=== PATIENT | male | born 1995 | race Caucasian/White ===

== ENCOUNTER 2018-02-27 22:02 | Inpatient (IN) ==
--- NOTE | 2018-02-27 22:50 | Emergency Department Note ---
Disposition Clinical Impression: Suicidal ideations Disposition: Admitted As Inpatient Condition: Fair Referrals: NONE,PCP [Primary Care Provider] - Forms: ED Satisfaction Letter Psych HPI - General Chief Complaint: ED Psychiatric Symptoms Stated Complaint: anxiety Source: patient, EMS, police Nursing Notes Reviewed: Yes Vital Signs Reviewed: Yes - History of Present Illness HPI Narrative: 22-year-old male presents to the emergency department with concern for having suicidal ideations. Mother states that patient posted a video social media where he got into a full bathtub with a knife up with a knife up to his neck and then cut the film. States that he is having auditory hallucinations. The voices are not telling him specifically to hurt himself or hurt anybody else, but he does have voices. No visual hallucinations. [place] talking to [place]. Patient reports history of marijuana use as well as amphetamines use. States he has not had any today. States that the drugs helps his feelings. Reports having depression and anxiety. - Related Data Previous Rx's Medication Instructions Recorded Albuterol Sulfate [Albuterol 0 puff IH Q6HR #1 hfa.aer.ad 06/03/15 Inhaler] Azithromycin [Zithromax] 250 mg PO DAILY #6 tablet 06/03/15 predniSONE [Prednisone] 0 mg PO QDPC #21 tablet 06/03/15 Erythromycin OPTH Oint 1 appl LEFT EYE TID #1 tube 03/20/16 Allergies Allergy/AdvReac Type Severity Reaction Status Date / Time No Known Allergies Allergy Verified 06/03/15 10:31 All systems ED: reviewed and negative except as stated. Review of Systems: As Per HPI Constitutional: Denies: fever Cardiovascular: Denies: chest pain Respiratory: Denies: dyspnea Gastrointestinal: Denies: abdominal pain Neurological: Denies: headache Psychiatric: Reports: suicidal thoughts, auditory hallucinations Past Medical History - Past Medical History Medical history: Reports: no medical history Surgical history: Reports: no surgical history Psychiatric history: Reports: no psych history - Social History Smoking Status: Current every day smoker Smokeless Tobacco Status: No Alcohol use: Reports: occasionally Drug use: Reports: marijuana Physical Exam - General General appearance: alert, in no apparent distress - Head Head exam: atraumatic, normocephalic - Eye Eye exam: Present: EOMI - ENT ENT exam: mucous membranes moist - Neck Neck exam: Present: trachea midline - Chest Chest inspection: Present: normal inspection, symmetric chest wall rise - Respiratory Respiratory exam: Present: normal lung sounds bilaterally. Absent: respiratory distress - Cardiovascular Cardiovascular exam: Present: regular rate, normal rhythm, normal heart sounds - Abdominal Exam Abdominal exam: Present: soft, Non-Tender. Absent: distention, guarding, rebound - Extremities Exam Extremities exam: Present: normal capillary refill - Back Exam Back exam: Absent: CVA tenderness (R), CVA tenderness (L) - Neurological Exam Neurological exam: Present: alert, oriented X3, CN II-XII intact - Psychiatric Psychiatric exam: Present: flat affect - Skin Skin exam: Present: warm, dry, intact, normal color Course Vital Signs Temperature 97.9 F 02/27/18 22:05 Pulse Rate 100 02/27/18 22:05 Respiratory Rate 16 02/27/18 22:05 Blood Pressure 118/71 02/27/18 22:05 O2 Sat by Pulse Oximetry 100 02/27/18 22:05 Temperature 97.9 F 02/27/18 22:05 Pulse Rate 92 02/28/18 02:49 Respiratory Rate 16 02/28/18 02:49 Blood Pressure 122/72 02/28/18 02:49 O2 Sat by Pulse Oximetry 100 02/28/18 02:49 Oxygen Delivery Oxygen Delivery Room Air Psych - MDM Narrative Medical decision making narrative: 22-year-old male presents emergency department with concern for suicidal ideations. [place] slip was written. We obtained an EKG and this does not reveal any evidence of ischemia or drug overdose. Patient's ethanol level was negative. Patient's Tylenol level was negative. No elevated salicylate. Marijuana was found the urine. Patient was evaluated by one a. They recommended observation. Patient minutes before. Patient had a sitter. Patient under suicide precautions. - Lab Data Result diagrams: 02/27/18 22:51 02/27/18 22:51 Lab Results 02/27/18 02/27/18 02/27/18 Range/Units 22:51 22:51 23:03 WBC 13.2 H (4.3-11.1) K/mcL RBC 4.99 (4.19-5.50) M/mcL Hgb 15.4 (12.9-16.9) g/dL Hct 44.5 (37.5-50.1) % MCV 89.2 (83.0-100.0) fL MCH 30.9 (28.0-33.3) pg MCHC 34.6 (31.6-35.5) g/dL RDW 13.0 (11.5-14.5) % Plt Count 280 (140-400) K/mcL MPV 9.6 (9.4-12.4) fL Immature Gran % 0.2 (0-4) % Seg Neutrophils % 75.8 % Lymphocytes % 16.0 % Monocytes % 6.7 % Eosinophils % 0.9 % Basophils % 0.4 % Neutrophils # 10.0 H (1.6-8.9) K/mcL Lymphocytes # 2.1 (0.6-4.6) K/mcL Monocytes # 0.9 (0.0-1.3) K/mcL Eosinophils # 0.1 (0.0-0.6) K/mcL Basophils # 0.1 (0.0-0.2) K/mcL Sodium 138 (136-145) mEq/L Potassium 3.9 (3.5-5.1) mEq/L Chloride 105 (98-107) mEq/L Carbon Dioxide 26 (23-29) mEq/L BUN 14 (6-20) mg/dL Creatinine 0.85 (0.70-1.30) mg/dL Est GFR ( Amer) > 60 (> 60) Est GFR (Non-Af Amer) > 60 (> 60) BUN/Creatinine Ratio 16 (6-26) Glucose 93 (70-105) mg/dL Calculated Osmolality 286 (280-300) Calcium 10.2 (8.6-10.3) mg/dL Total Bilirubin 0.5 (0.3-1.0) mg/dL AST 20 (13-39) Units/L ALT 12 (7-52) Units/L Alkaline Phosphatase 96 (34-104) Units/L Serum Total Protein 7.8 (6.4-8.9) g/dL Albumin 5.0 (3.5-5.7) g/dL Globulin 2.8 (2.4-3.5) g/dL Albumin/Globulin Ratio 1.8 (1.1-2.2) Urine Color Yellow (Yellow) Urine Clarity Clear (Clear) Urine pH 7.5 (5.0-8.0) pH Units Ur Specific [place] 1.015 (1.010-1.025) Urine Protein Negative (Neg-Trace) mg/dL Urine Glucose (UA) Normal (Normal) mg/dL Urine Ketones Negative (Negative) mg/dL Urine Blood Negative (Negative) Urine Nitrite Negative (Negative) Urine Bilirubin Negative (Negative) Urine Urobilinogen Normal (Normal) mg/dL Ur Leukocyte Esterase Negative (Negative) Salicylates < 2.5 L (15.0-30.0) mg/dL Urine Opiates Screen (Klvnyd=973) ng/mL Acetaminophen < 10 L (10-20) mcg/mL Ur Barbiturates Screen (Qckzwq=665) ng/mL Ur Phencyclidine Scrn (Cutoff=25) ng/mL Ur Amphetamines Screen (Drxutq=3977) ng/mL U Benzodiazepines Scrn (Nnmcsx=593) ng/mL Urine Cocaine Screen (Cutoff= 300) ng/mL U Marijuana (THC) Screen (Cutoff = 50) ng/mL Ethyl Alcohol < 10 (Less than 10) mg/dL 02/27/18 Range/Units 23:03 WBC (4.3-11.1) K/mcL RBC (4.19-5.50) M/mcL Hgb (12.9-16.9) g/dL Hct (37.5-50.1) % MCV (83.0-100.0) fL MCH (28.0-33.3) pg MCHC (31.6-35.5) g/dL RDW (11.5-14.5) % Plt Count (140-400) K/mcL MPV (9.4-12.4) fL Immature Gran % (0-4) % Seg Neutrophils % % Lymphocytes % % Monocytes % % Eosinophils % % Basophils % % Neutrophils # (1.6-8.9) K/mcL Lymphocytes # (0.6-4.6) K/mcL Monocytes # (0.0-1.3) K/mcL Eosinophils # (0.0-0.6) K/mcL Basophils # (0.0-0.2) K/mcL Sodium (136-145) mEq/L Potassium (3.5-5.1) mEq/L Chloride (98-107) mEq/L Carbon Dioxide (23-29) mEq/L BUN (6-20) mg/dL Creatinine (0.70-1.30) mg/dL Est GFR ( Amer) (> 60) Est GFR (Non-Af Amer) (> 60) BUN/Creatinine Ratio (6-26) Glucose (70-105) mg/dL Calculated Osmolality (280-300) Calcium (8.6-10.3) mg/dL Total Bilirubin (0.3-1.0) mg/dL AST (13-39) Units/L ALT (7-52) Units/L Alkaline Phosphatase (34-104) Units/L Serum Total Protein (6.4-8.9) g/dL Albumin (3.5-5.7) g/dL Globulin (2.4-3.5) g/dL Albumin/Globulin Ratio (1.1-2.2) Urine Color (Yellow) Urine Clarity (Clear) Urine pH (5.0-8.0) pH Units Ur Specific Stamps (1.010-1.025) Urine Protein (Neg-Trace) mg/dL Urine Glucose (UA) (Normal) mg/dL Urine Ketones (Negative) mg/dL Urine Blood (Negative) Urine Nitrite (Negative) Urine Bilirubin (Negative) Urine Urobilinogen (Normal) mg/dL Ur Leukocyte Esterase (Negative) Salicylates (15.0-30.0) mg/dL Urine Opiates Screen Negative (Ybkanm=581) ng/mL Acetaminophen (10-20) mcg/mL Ur Barbiturates Screen Negative (Fvsikv=911) ng/mL Ur Phencyclidine Scrn Negative (Cutoff=25) ng/mL Ur Amphetamines Screen Negative (Scvtel=0855) ng/mL U Benzodiazepines Scrn Negative (Nrdnzj=288) ng/mL Urine Cocaine Screen Negative (Cutoff= 300) ng/mL U Marijuana (THC) Screen Positive H (Cutoff = 50) ng/mL Ethyl Alcohol (Less than 10) mg/dL - EKG Data EKG attestation: Yes I reviewed and interpreted this EKG. EKG results narrative: 23:17 Ventricular rate 6 bpm, normal NM interval, QR amish 90 ms, QT 3 and 45 ms , QTC 388 ms, normal axis. Sinus rhythm with a ventricular rate of 86 bpm. There is no evidence of tall R wave in aVR, QRS widening, QT prolongation, ischemia on this electrocardiogram. This is done in comparison with the previous study performed on 06/03/2015. Psychiatric Medical Clearance - Medical Clearance Checklist Medical History: No Social History Section defined Current Vitals: Last Vital Signs Temp 97.9 F 02/27/18 22:05 Pulse 92 02/28/18 02:49 Resp 16 02/28/18 02:49 BP 122/72 02/28/18 02:49 Pulse Ox 100 02/28/18 02:49 Psychiatric Lab Panel: Drug Levels and Toxicity 02/27/18 02/27/18 22:51 23:03 Urine Opiates Screen Negative Acetaminophen < 10 L Ur Barbiturates Screen Negative Ur Phencyclidine Scrn Negative Ur Amphetamines Screen Negative U Benzodiazepines Scrn Negative Urine Cocaine Screen Negative U Marijuana (THC) Screen Positive H Ethyl Alcohol < 10 Abnormal Labs: Abnormal lab results WBC 13.2 K/mcL (4.3-11.1) H 02/27/18 22:51 Neutrophils # 10.0 K/mcL (1.6-8.9) H 02/27/18 22:51 Salicylates < 2.5 mg/dL (15.0-30.0) L 02/27/18 22:51 Acetaminophen < 10 mcg/mL (10-20) L 02/27/18 22:51 U Marijuana (THC) Screen Positive ng/mL (Cutoff = 50) H 02/27/18 23:03 Statement of Medical Clearance: I have evaluated the patient, reviewed diagnostic information, and certify that the patient's medical condition is sufficiently stable that transfer to the psychiatric unit does not pose a significant risk of deterioration.
[2018-02-27 23:08] LABS: Basophils # 0.1 K/mcL (0.0-0.2); Basophils % 0.4 %; Eosinophils # 0.1 K/mcL (0.0-0.6); Eosinophils % 0.9 %; Hematocrit 44.5 % (37.5-50.1); Hemoglobin 15.4 g/dL (12.9-16.9); Immature Granulocytes % 0.2 % (0-4); Lymphocytes # 2.1 K/mcL (0.6-4.6); Mean Corpuscular HGB Conc 34.6 g/dL (31.6-35.5); Mean Corpuscular Hemoglobin 30.9 pg (28.0-33.3); Mean Corpuscular Volume 89.2 fL (83.0-100.0); Mean Platelet Volume 9.6 fL (9.4-12.4); Monocytes # 0.9 K/mcL (0.0-1.3); Monocytes % 6.7 %; Platelet Count 280 K/mcL (140-400); Red Blood Count 4.99 M/mcL (4.19-5.50); Segmented Neutrophils % 75.8 %
[2018-02-27 23:12] LABS: Bilirubin,Urine Negative (Negative); Blood,Urine Negative (Negative); Clarity,Urine Clear (Clear); Color,Urine Yellow (Yellow); Glucose,Urine (UA) Normal (Normal); Ketones,Urine Negative (Negative); Leukocyte Esterase,Urine Negative (Negative); Nitrite,Urine Negative (Negative); PH,Urine 7.5 pH Units (5.0-8.0); Protein,Urine Negative (Neg-Trace); Specific Gravity,Urine 1.015 (1.010-1.025); Urobilinogen,Urine Normal (Normal)
[2018-02-27 23:20] LABS: Amphetamine Screen,Urine Negative ng/mL (Cutoff=1000); Barbiturate Screen,Urine Negative ng/mL (Cutoff=200); Benzodiazepines Screen,Urine Negative ng/mL (Cutoff=200); Cannabinoid Screen,Urine Positive ng/mL (Cutoff = 50); Cocaine Screen,Urine Negative ng/mL (Cutoff= 300); Opiate Screen,Urine Negative ng/mL (Cutoff=300); Phencyclidine Screen,Urine Negative ng/mL (Cutoff=25)
[2018-02-27 23:32] LABS: Acetaminophen < 10 mcg/mL (10-20); Alanine Aminotransferase 12 Units/L (7-52); Albumin/Globulin Ratio 1.8 (1.1-2.2); Alkaline Phosphatase 96 Units/L (34-104); Aspartate Amino Transferase 20 Units/L (13-39); BUN/Creatinine Ratio 16 (6-26); Bilirubin,Total 0.5 mg/dL (0.3-1.0); Blood Urea Nitrogen 14 mg/dL (6-20); Calcium 10.2 mg/dL (8.6-10.3); Carbon Dioxide 26 mEq/L (23-29); Chloride 105 mEq/L (98-107); Ethanol < 10 mg/dL (Less than 10); Globulin 2.8 g/dL (2.4-3.5); Glucose 93 mg/dL (70-105); Osmolality,Calculated 286 (280-300); Potassium 3.9 mEq/L (3.5-5.1); Salicylate < 2.5 mg/dL (15.0-30.0); Sodium 138 mEq/L (136-145); Total Protein 7.8 g/dL (6.4-8.9); eGFR For African Americans > 60 (> 60); eGFR For Non-African Americans > 60 (> 60)
--- NOTE | 2018-02-28 03:04 | Emergency Department Note ---
Disposition Clinical Impression: Suicidal ideations Disposition: Admitted As Inpatient Condition: Good General Adult HPI - General Chief complaint: ED Psychiatric Symptoms Stated complaint: anxiety Time Seen by Provider: 02/27/18 23:31 Source: patient, EMS, police Nursing Notes Reviewed: Yes Vital Signs Reviewed: Yes - History of Present Illness Pain Scale: 0 - Related Data Previous Rx's Medication Instructions Recorded Albuterol Sulfate [Albuterol 0 puff IH Q6HR #1 hfa.aer.ad 06/03/15 Inhaler] Azithromycin [Zithromax] 250 mg PO DAILY #6 tablet 06/03/15 predniSONE [Prednisone] 0 mg PO QDPC #21 tablet 06/03/15 Erythromycin OPTH Oint 1 appl LEFT EYE TID #1 tube 03/20/16 Allergies Allergy/AdvReac Type Severity Reaction Status Date / Time No Known Allergies Allergy Verified 06/03/15 10:31 Past Medical History - Past Medical History Medical history: Reports: no medical history Surgical history: Reports: no surgical history Psychiatric history: Reports: no psych history - Social History Smoking Status: Current every day smoker Smokeless Tobacco Status: No Alcohol use: Reports: occasionally Drug use: Reports: marijuana Physical Exam - General General appearance: alert, in no apparent distress Course Vital Signs Temperature 97.9 F 02/27/18 22:05 Pulse Rate 100 02/27/18 22:05 Respiratory Rate 16 02/27/18 22:05 Blood Pressure 118/71 02/27/18 22:05 O2 Sat by Pulse Oximetry 100 02/27/18 22:05 Temperature 97.9 F 02/27/18 22:05 Pulse Rate 92 02/28/18 02:49 Respiratory Rate 16 02/28/18 02:49 Blood Pressure 122/72 02/28/18 02:49 O2 Sat by Pulse Oximetry 100 02/28/18 02:49 Oxygen Delivery Oxygen Delivery Room Air Medical Decision Making - Lab Data Result diagrams: 02/27/18 22:51 02/27/18 22:51 Lab Results 02/27/18 02/27/18 02/27/18 Range/Units 22:51 22:51 23:03 WBC 13.2 H (4.3-11.1) K/mcL RBC 4.99 (4.19-5.50) M/mcL Hgb 15.4 (12.9-16.9) g/dL Hct 44.5 (37.5-50.1) % MCV 89.2 (83.0-100.0) fL MCH 30.9 (28.0-33.3) pg MCHC 34.6 (31.6-35.5) g/dL RDW 13.0 (11.5-14.5) % Plt Count 280 (140-400) K/mcL MPV 9.6 (9.4-12.4) fL Immature Gran % 0.2 (0-4) % Seg Neutrophils % 75.8 % Lymphocytes % 16.0 % Monocytes % 6.7 % Eosinophils % 0.9 % Basophils % 0.4 % Neutrophils # 10.0 H (1.6-8.9) K/mcL Lymphocytes # 2.1 (0.6-4.6) K/mcL Monocytes # 0.9 (0.0-1.3) K/mcL Eosinophils # 0.1 (0.0-0.6) K/mcL Basophils # 0.1 (0.0-0.2) K/mcL Sodium 138 (136-145) mEq/L Potassium 3.9 (3.5-5.1) mEq/L Chloride 105 (98-107) mEq/L Carbon Dioxide 26 (23-29) mEq/L BUN 14 (6-20) mg/dL Creatinine 0.85 (0.70-1.30) mg/dL Est GFR ( Amer) > 60 (> 60) Est GFR (Non-Af Amer) > 60 (> 60) BUN/Creatinine Ratio 16 (6-26) Glucose 93 (70-105) mg/dL Calculated Osmolality 286 (280-300) Calcium 10.2 (8.6-10.3) mg/dL Total Bilirubin 0.5 (0.3-1.0) mg/dL AST 20 (13-39) Units/L ALT 12 (7-52) Units/L Alkaline Phosphatase 96 (34-104) Units/L Serum Total Protein 7.8 (6.4-8.9) g/dL Albumin 5.0 (3.5-5.7) g/dL Globulin 2.8 (2.4-3.5) g/dL Albumin/Globulin Ratio 1.8 (1.1-2.2) Urine Color Yellow (Yellow) Urine Clarity Clear (Clear) Urine pH 7.5 (5.0-8.0) pH Units Ur Specific [place] 1.015 (1.010-1.025) Urine Protein Negative (Neg-Trace) mg/dL Urine Glucose (UA) Normal (Normal) mg/dL Urine Ketones Negative (Negative) mg/dL Urine Blood Negative (Negative) Urine Nitrite Negative (Negative) Urine Bilirubin Negative (Negative) Urine Urobilinogen Normal (Normal) mg/dL Ur Leukocyte Esterase Negative (Negative) Salicylates < 2.5 L (15.0-30.0) mg/dL Urine Opiates Screen (Ubnncm=681) ng/mL Acetaminophen < 10 L (10-20) mcg/mL Ur Barbiturates Screen (Nvljfs=223) ng/mL Ur Phencyclidine Scrn (Cutoff=25) ng/mL Ur Amphetamines Screen (Gtcfhd=0577) ng/mL U Benzodiazepines Scrn (Jxmska=961) ng/mL Urine Cocaine Screen (Cutoff= 300) ng/mL U Marijuana (THC) Screen (Cutoff = 50) ng/mL Ethyl Alcohol < 10 (Less than 10) mg/dL 02/27/18 Range/Units 23:03 WBC (4.3-11.1) K/mcL RBC (4.19-5.50) M/mcL Hgb (12.9-16.9) g/dL Hct (37.5-50.1) % MCV (83.0-100.0) fL MCH (28.0-33.3) pg MCHC (31.6-35.5) g/dL RDW (11.5-14.5) % Plt Count (140-400) K/mcL MPV (9.4-12.4) fL Immature Gran % (0-4) % Seg Neutrophils % % Lymphocytes % % Monocytes % % Eosinophils % % Basophils % % Neutrophils # (1.6-8.9) K/mcL Lymphocytes # (0.6-4.6) K/mcL Monocytes # (0.0-1.3) K/mcL Eosinophils # (0.0-0.6) K/mcL Basophils # (0.0-0.2) K/mcL Sodium (136-145) mEq/L Potassium (3.5-5.1) mEq/L Chloride (98-107) mEq/L Carbon Dioxide (23-29) mEq/L BUN (6-20) mg/dL Creatinine (0.70-1.30) mg/dL Est GFR ( Amer) (> 60) Est GFR (Non-Af Amer) (> 60) BUN/Creatinine Ratio (6-26) Glucose (70-105) mg/dL Calculated Osmolality (280-300) Calcium (8.6-10.3) mg/dL Total Bilirubin (0.3-1.0) mg/dL AST (13-39) Units/L ALT (7-52) Units/L Alkaline Phosphatase (34-104) Units/L Serum Total Protein (6.4-8.9) g/dL Albumin (3.5-5.7) g/dL Globulin (2.4-3.5) g/dL Albumin/Globulin Ratio (1.1-2.2) Urine Color (Yellow) Urine Clarity (Clear) Urine pH (5.0-8.0) pH Units Ur Specific [place] (1.010-1.025) Urine Protein (Neg-Trace) mg/dL Urine Glucose (UA) (Normal) mg/dL Urine Ketones (Negative) mg/dL Urine Blood (Negative) Urine Nitrite (Negative) Urine Bilirubin (Negative) Urine Urobilinogen (Normal) mg/dL Ur Leukocyte Esterase (Negative) Salicylates (15.0-30.0) mg/dL Urine Opiates Screen Negative (Kzvskf=758) ng/mL Acetaminophen (10-20) mcg/mL Ur Barbiturates Screen Negative (Kftwub=629) ng/mL Ur Phencyclidine Scrn Negative (Cutoff=25) ng/mL Ur Amphetamines Screen Negative (Wjklcu=1975) ng/mL U Benzodiazepines Scrn Negative (Achgty=973) ng/mL Urine Cocaine Screen Negative (Cutoff= 300) ng/mL U Marijuana (THC) Screen Positive H (Cutoff = 50) ng/mL Ethyl Alcohol (Less than 10) mg/dL Attestation Statement - Attestation Attestation: I, Ron Luo MD, personally evaluated this patient and discussed their management with the resident physician. I reviewed the resident's note and agree with the documented findings, medical decision making, and plan of care. 22-year-old male presents to the emergency department with a complaint of suicidal ideation. He also admits to auditory hallucinations. No actual suicide attempt. He admits to prior history of suicidal thoughts. He is not on any psychiatric medications. On examination patient is a well-developed thin young male in no acute distress. He is alert and oriented 3. There is no cyanosis or diaphoresis. Breath sounds are clear and equal bilaterally. Heart regular rate and rhythm. Abdomen soft and nontender with normal bowel sounds. No gross focal neurological deficits. Labs reviewed. [address] psychiatry department was consulted and evaluated the patient in the emergency department and patient is being admitted to the 1A psychiatric unit.
[2018-02-28] MEDS ORDERED: traZODone 50 MG TABLET PO PRN (04:45)
[2018-02-28] MEDS ORDERED: Mag Hydrox/Al Hydrox/Simeth 30 ML UDC PO PRN (04:45)
[2018-02-28] MEDS ORDERED: MOM Conc 10 ML UD.LIQ PO PRN (04:45)
[2018-02-28] MEDS ORDERED: Acetaminophen 325 MG TABLET PO PRN (04:45)
[2018-02-28] MEDS ORDERED: Haloperidol Lactate 5 MG/ML VIAL IM PRN (04:45)
--- NOTE | 2018-02-28 07:26 | Electrocardiograph Report ---
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
--- NOTE | 2018-02-28 12:30 | Psychiatry History & Physical ---
Date of Encounter: 02/28/18 Time of Encounter: 12:00 History of Present Illness Patient Stated Chief Complaint: depressed Medicare Admission Attestation: For traditional Medicare patients the provided hospital inpatient services are reasonable and necessary and in the case of services not specified as inpatient -only under 42 CFR 419.22 (n), that they are appropriately provided as inpatient services in accordance 42 CFR 412.3. For Critical Access Hospital the patient may reasonably be expected to be discharged or transferred to a hospital within 96 hours after admission to the Critical Access Hospital. Admitted From: Emergency Dept Plans for Post Hospital Care: Home History of Present Illness: Mr. Ghotra is a 20 year old male 22-year-old male presents to the emergency department with a complaint of suicidal ideation. He also admits to auditory hallucinations. No actual suicide attempt. He admits to prior history of suicidal thoughts. He is not on any psychiatric medications. On examination patient is a well-developed thin young male in no acute distress. He is alert and oriented 3. There is no cyanosis or diaphoresis. Breath sounds are clear and equal bilaterally. Heart regular rate and rhythm. Abdomen soft and nontender with normal bowel sounds. No gross focal neurological deficits. Labs reviewed. [address] psychiatry department was consulted and evaluated the patient in the emergency department and patient is being admitted to the 1A psychiatric unit. Pt is a 22 yo ,, male, never , with 1 child and a girlfriend who presents for depression and anxiety. Pt noted recent exacerbation of depression. Pt noted I came in because I needed some help I feel better now that I am here and safe. I feel safe and comfortable on the unit. Pt denied any side effects to current medications. Pt was in agreement with current treatment plan. Pt noted that he is doing alright today. Pt noted he slept 6 hours broken night. Pt noted his appetite is its down. Pt rated his depression a 8, on a scale of zero to ten with ten being the worst and zero being none. Pt rate his anxiety a 8, on the same scale. Pt denied any auditory or visual hallucinations. Pt denied any current thoughts to harm himself or anyone else. Pt noted that he lives temporarily in [place], [place] with his girlfriend.. PT note his father completed suicide 7-8 years ago, pt noted his mother lives in [place], [place]. Pt noted that his highest level of education is 12th grade did not graduate. Pt noted he is currently unemployed. Pt noted one previous inpt psychiatric hospitalizations in 2013 with a "bad trip on LSD. Pt noted a few "attempts.....like walking out in traffic." Pt denied any other family hx of suicides besides his fahter. PT noted a chrronic hx of depression throughouthis entire family. 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 No TD noted, AIMS=0 MSE: Alert and Oriented x3 Appearance: appropriately groomed dressed in civilian attire Behavior: Polite, friendly, courteous Speech: fluent, normal tone, normal rate Mood: depressed Affect: mood congruent Thought content: no HI noted, no SI noted, no delusions noted Psychosis: none noted, currently does not appear to be responding to internal stimuli. Thought Process: linear logical, goal directed Judgment: fair. Insight: fair. Assessment/Plan 1.Interval hx 2.Continue current medications 3.Review current labs 4.Pt had an opportunity to ask questions and discuss current treatment plan. 5.Supportive therapy was provided 6.Pt encouraged to consider group or individual therapy 7.Pt was in agreement with treatment plan. 8.Pt was educated on the risks benefits and side effects of current medications. 9. start sertaline 50 mg PO QAM for mood 10. start Aripiprazole 2 mg PO QAM for mood. Past Med Surg Social Fam HX - Past Medical History Medical history: no medical history - Past Psychiatric History Psychiatric history: Reports: depression, prior suicide attempt, previous psychiatric hospitalization Family psychiatric history: Yes Family History of Suicide: Completed - Past Surgical History Surgical History: no surgical history - Social History Smoking Status: Current every day smoker Smokeless Tobacco Status: No Alcohol use: rarely Drug use: marijuana Medications & Allergies No Known Home Drugs 02/28/18 [History] 3 Allergy/AdvReac Type Severity Reaction Status Date / Time No Known Allergies Allergy Verified 02/28/18 11:10 Review of Systems Constitutional: Denies: fever, chills, weakness, weight change Eyes: Denies: eye pain, vision change Ears, Nose, Throat: Denies: ear pain, throat pain, dental pain, hearing loss, congestion Cardiovascular: Denies: chest pain, palpitations, dyspnea on exertion Respiratory: Denies: cough, dyspnea, wheezes Gastrointestinal: Denies: abdominal pain, nausea, vomiting, diarrhea, constipation Genitourinary male: Denies: urgency, dysuria, frequency, genital lesions Musculoskeletal: Denies: joint swelling, joint pain Integumentary: Denies: rash, lesions, pruritus Neurological: Denies: headache, weakness, numbness, memory loss Psychiatric: Reports: depression, abnormal sleep pattern, suicidal ideation Endocrine: Denies: fatigue, heat or cold intolerance Hematologic/Lymphatic: Denies: easy bruising, lymphadenopathy Allergic/Immunologic: Denies: urticaria, itchy eyes Exam - HEENT Head exam IM: Present: atraumatic Eye exam IM: Present: EOMI, normal appearance, PERRL ENT exam IM: Present: normal exam - Neurological Neurological exam: Present: CN II-XII intact - Respiratory Respiratory exam IM: Present: CTAB - GI/Abdominal GI/Abdominal exam IM: Present: normal bowel sounds, soft. Absent: tenderness - Extremities Extremities exam IM: Present: full ROM - Skin Skin exam IM: Present: dry, warm - Constitutional Vitals: Temp Pulse Resp BP Pulse Ox 98.0 F 94 16 109/86 100 02/28/18 09:00 02/28/18 09:00 02/28/18 09:00 02/28/18 09:00 02/28/18 03:46 General appearance: age & developmentally appropriate, well-groomed, well- nourished - Musculoskeletal Gait: normal Station: relaxed Strength & Tone: normal for patient - Psychiatric Patient Orientation: Yes Person, Yes Time, Yes Place Level of alertness: Alert Behavior: calm, cooperative Psychomotor activity: Normal Eye Contact: Minimal Contact Mood Description: Depressed Affect description: congruent with mood, dysphoric Speech Volume: Normal Speech pattern: normal rate, normal rhythm, normal tone, fluent, spontaneous, slowed Language & Vocabulary: consistent with education Thought Process: Intact, Logical, Linear, Goal Oriented Thought Content: Yes Suicidal ideation Perceptual Disturbances: No Auditory hallucinations, No Visual hallucinations Attention Span Ability: Capable of Focused Attention Memory Description: Grossly Intact Patient Reliability: Reliable Historian Fund of knowledge: Yes abstraction ability, Yes average, Yes aware of current events Intelligence Estimate: Average Judgment: Limited Insight: Partial Results - Labs Labs: Laboratory Last Values WBC 13.2 K/mcL (4.3-11.1) H 02/27/18 22:51 RBC 4.99 M/mcL (4.19-5.50) 02/27/18 22:51 Hgb 15.4 g/dL (12.9-16.9) 02/27/18 22:51 Hct 44.5 % (37.5-50.1) 02/27/18 22:51 MCV 89.2 fL (83.0-100.0) 02/27/18 22:51 MCH 30.9 pg (28.0-33.3) 02/27/18 22:51 MCHC 34.6 g/dL (31.6-35.5) 02/27/18 22:51 RDW 13.0 % (11.5-14.5) 02/27/18 22:51 Plt Count 280 K/mcL (140-400) 02/27/18 22:51 MPV 9.6 fL (9.4-12.4) 02/27/18 22:51 Immature Gran % 0.2 % (0-4) 02/27/18 22:51 Seg Neutrophils % 75.8 % 02/27/18 22:51 Lymphocytes % 16.0 % 02/27/18 22:51 Monocytes % 6.7 % 02/27/18 22:51 Eosinophils % 0.9 % 02/27/18 22:51 Basophils % 0.4 % 02/27/18 22:51 Neutrophils # 10.0 K/mcL (1.6-8.9) H 02/27/18 22:51 Lymphocytes # 2.1 K/mcL (0.6-4.6) 02/27/18 22:51 Monocytes # 0.9 K/mcL (0.0-1.3) 02/27/18 22:51 Eosinophils # 0.1 K/mcL (0.0-0.6) 02/27/18 22:51 Basophils # 0.1 K/mcL (0.0-0.2) 02/27/18 22:51 Sodium 138 mEq/L (136-145) 02/27/18 22:51 Potassium 3.9 mEq/L (3.5-5.1) 02/27/18 22:51 Chloride 105 mEq/L (98-107) 02/27/18 22:51 Carbon Dioxide 26 mEq/L (23-29) 02/27/18 22:51 BUN 14 mg/dL (6-20) 02/27/18 22:51 Creatinine 0.85 mg/dL (0.70-1.30) 02/27/18 22:51 Est GFR ( Amer) > 60 (> 60) 02/27/18 22:51 Est GFR (Non-Af Amer) > 60 (> 60) 02/27/18 22:51 BUN/Creatinine Ratio 16 (6-26) 02/27/18 22:51 Glucose 93 mg/dL (70-105) 02/27/18 22:51 Calculated Osmolality 286 (280-300) 02/27/18 22:51 Calcium 10.2 mg/dL (8.6-10.3) 02/27/18 22:51 Total Bilirubin 0.5 mg/dL (0.3-1.0) 02/27/18 22:51 AST 20 Units/L (13-39) 02/27/18 22:51 ALT 12 Units/L (7-52) 02/27/18 22:51 Alkaline Phosphatase 96 Units/L (34-104) 02/27/18 22:51 Serum Total Protein 7.8 g/dL (6.4-8.9) 02/27/18 22:51 Albumin 5.0 g/dL (3.5-5.7) 02/27/18 22:51 Globulin 2.8 g/dL (2.4-3.5) 02/27/18 22:51 Albumin/Globulin Ratio 1.8 (1.1-2.2) 02/27/18 22:51 Urine Color Yellow (Yellow) 02/27/18 23:03 Urine Clarity Clear (Clear) 02/27/18 23:03 Urine pH 7.5 pH Units (5.0-8.0) 02/27/18 23:03 Ur Specific Lee 1.015 (1.010-1.025) 02/27/18 23:03 Urine Protein Negative mg/dL (Neg-Trace) 02/27/18 23:03 Urine Glucose (UA) Normal mg/dL (Normal) 02/27/18 23:03 Urine Ketones Negative mg/dL (Negative) 02/27/18 23:03 Urine Blood Negative (Negative) 02/27/18 23:03 Urine Nitrite Negative (Negative) 02/27/18 23:03 Urine Bilirubin Negative (Negative) 02/27/18 23:03 Urine Urobilinogen Normal mg/dL (Normal) 02/27/18 23:03 Ur Leukocyte Esterase Negative (Negative) 02/27/18 23:03 Salicylates < 2.5 mg/dL (15.0-30.0) L 02/27/18 22:51 Urine Opiates Screen Negative ng/mL (Xlrjbm=835) 02/27/18 23:03 Acetaminophen < 10 mcg/mL (10-20) L 02/27/18 22:51 Ur Barbiturates Screen Negative ng/mL (Xtpcdl=360) 02/27/18 23:03 Ur Phencyclidine Scrn Negative ng/mL (Cutoff=25) 02/27/18 23:03 Ur Amphetamines Screen Negative ng/mL (Oaxmgy=0521) 02/27/18 23:03 U Benzodiazepines Scrn Negative ng/mL (Xoabul=924) 02/27/18 23:03 Urine Cocaine Screen Negative ng/mL (Cutoff= 300) 02/27/18 23:03 U Marijuana (THC) Screen Positive ng/mL (Cutoff = 50) H 02/27/18 23:03 Ethyl Alcohol < 10 mg/dL (Less than 10) 02/27/18 22:51 Assessment and Plan (1) Major depressive disorder, recurrent, severe with psychotic features Current visit: Yes Status: Acute Plan: Admit inpatient for safety and stabilization, Close observation, Suicide Precautions per unit protocol, Encourage participation in unit milieu, Group Therapy, Monitor sleep, Monitor appetite Risks, benefits, side effects, alternatives discussed w/pt: Yes Patient agreeable to treatment: Yes Plans for Post Hospital Care: Home (2) Suicidal ideations Current visit: Yes Status: Acute Plan: Admit inpatient for safety and stabilization, Close observation, Suicide Precautions per unit protocol, Encourage participation in unit milieu, Group Therapy, Monitor sleep, Monitor appetite Risks, benefits, side effects, alternatives discussed w/pt: Yes Patient agreeable to treatment: Yes Plans for Post Hospital Care: Home
[2018-02-28] MEDS ORDERED: ARIPiprazole 2 MG TABLET PO SCH (12:45)
[2018-03-01] MEDS: hydrOXYzine pamoate 25 MG CAPSULE PO PRN (05:00)
--- NOTE | 2018-03-01 11:55 | Psychiatry Progress Note ---
Date of Encounter: 03/01/18 Time of Encounter: 11:25 Subjective Interval history: Patient is 22 year old swm seen today for follow up. case D/W STAFF AND CHART REVIEWED , H/O DEPRESSION AND SUICIDAL IDEATION AND has walked down in front of traffic , the brakes saved me, he has h/o completed suicide in family , his father commited suicide. Patient has been in inpatient in 2012 but did not follow thru and no treatment then. he at present is feeling worthless, guilt depress and racing thoughts, suicidal thoughts not since here, he looks dysphoric, withdrawn and minimal eye contact and increase latency of speech. feeling paranoid a lot and i can not sleep , he denies a/v hallucination. he had side effect from Abilify , he vomited and felt bad so it was dc yesterday. he did not vomit today and has taken zoloft. will give seroquel 100 mg hs. side effects explained to patient and informed consent obtained. he has been trying to quit smoking and has cut down marijuana quite bit and planning to quit also. continue stabilization. Review of Systems Psychiatric: Reports: depression, abnormal sleep pattern, suicidal ideation Results - Vital Signs Vital Signs: Temp Pulse Resp BP Pulse Ox 98.2 F 84 16 125/92 100 02/28/18 20:47 02/28/18 20:47 02/28/18 20:47 02/28/18 20:47 02/28/18 03:46 Assessment and Plan (1) Suicidal ideations Current visit: Yes Status: Acute Plan: Continue hospitalization, Close observation, Suicide Precautions per unit protocol, Encourage participation in unit milieu, Group Therapy, Monitor sleep, Monitor appetite, Secure weapons, Family/Supportive other meeting Risks, benefits, side effects, alternatives discussed w/pt: Yes Patient agreeable to treatment: Yes (2) Major depressive disorder, recurrent, severe with psychotic features Current visit: Yes Status: Acute Plan: Continue hospitalization, Close observation, Suicide Precautions per unit protocol, Encourage participation in unit milieu, Group Therapy, Monitor sleep, Monitor appetite, Secure weapons, Family/Supportive other meeting Additional Plan: continue zoloft and will add seroquel and continue close observation and stabilization Risks, benefits, side effects, alternatives discussed w/pt: Yes Patient agreeable to treatment: Yes Consult Discharge Plan - Plan Referrals: [facility] [Outside] - 03/27/18 9:00 am (The above appointment is with Silvia Calderón for outpatient psychiatric assessment and medication management services. Please arrive 15 minutes early to complete paperwork. Please bring your insurance card, photo ID and medications in their original bottles. If you do not have insurance, bring proof of income to apply for the sliding fee scale. If you are unable to keep this appointment, 24 hour business notice of cancellation is expected. The above appointment(s) reflects first availability. You may contact the office regularly to check for cancellations that may allow you to be seen sooner.) [facility] - [facility]/07/18 12:30 pm (The above appointment is with Reina Alvarenga. Please complete and bring the [facility] intake packet you were provided at the hospital to this appointment. When you come to your first appointment, you will be meeting with business office staff, meeting with a counselor, and developing a treatment plan. You will receive follow- up appointments for on-going services, which could include community support, mental health and substance abuse counseling, groups/partial hospitalization programming and medication assisted treatment. You will also need to bring the following to your first appointment as well: 1) proof of household income (two consecutive pay stubs, social security award letter, bank statement, statement letter from [facility], child support statement, IRS 1040 or W2 form, or a statement from the person who financially supports you stating they help provide for your basic needs), 2) proof of residency (drivers license, a piece of mail showing your address, a statement from person you live with verifying you live at their address), 3) your social security card, 4) photo ID , 5) your insurance card (if you have commercial insurance you must call to obtain a prior authorization number before you arrive to your first appointment ) and 6) if you do not have insurance but have applied for Medicaid, please bring verification you have applied. The above appointment(s) reflects first availability. You may contact the office regularly to check for cancellations that may allow you to be seen sooner.) Psychiatry Exam - Constitutional Vitals: Temp Pulse Resp BP Pulse Ox 98.2 F 84 16 125/92 100 02/28/18 20:47 02/28/18 20:47 02/28/18 20:47 02/28/18 20:47 02/28/18 03:46 General appearance: age & developmentally appropriate, well-groomed, well- nourished - Musculoskeletal Gait: slow Station: relaxed Strength & Tone: normal for patient - Psychiatric Patient Orientation: Yes Person, Yes Time, Yes Place Level of alertness: Alert Behavior: cooperative, withdrawn Psychomotor activity: Slowed Eye Contact: Minimal Contact Mood Description: Depressed, Anxious Affect description: congruent with mood, dysphoric Speech Volume: Normal, Soft/Quiet Speech pattern: coherent, slowed Language & Vocabulary: consistent with education Thought Process: Slowed Thinking Thought Content: Yes Preoccupation, Yes Paranoid delusion, Yes Guilt Attention Span Ability: Capable of Sustained Attention Memory Description: Grossly Intact Patient Reliability: Reliable Historian Fund of knowledge: Yes average Intelligence Estimate: Average Judgment: Limited Insight: Partial
--- NOTE | 2018-03-02 12:10 | Psychiatry Progress Note ---
Date of Encounter: 03/02/18 Time of Encounter: 11:36 Subjective Interval history: Patient seen today case d/w with staff , patient compliant and showing some improvement. He is still depress and sad , withdrawn and anxious at same time, he was able to sleep last night, denies suicidal ideation today. he denies any side effects at present. he has h/o thyroid problem in family , will get TSH. Review of Systems Psychiatric: Reports: depression, abnormal sleep pattern, suicidal ideation Results - Vital Signs Vital Signs: Temp Pulse Resp BP Pulse Ox 97.2 F L 68 14 114/80 100 03/02/18 09:00 03/02/18 09:00 03/02/18 09:00 03/02/18 09:00 02/28/18 03:46 Assessment and Plan (1) Suicidal ideations Current visit: Yes Status: Acute Risks, benefits, side effects, alternatives discussed w/pt: Yes Patient agreeable to treatment: Yes (2) Major depressive disorder, recurrent, severe with psychotic features Current visit: Yes Status: Acute Risks, benefits, side effects, alternatives discussed w/pt: Yes Patient agreeable to treatment: Yes Consult Discharge Plan - Plan Referrals: [facility] [Outside] - 03/27/18 9:00 am (The above appointment is with Silvia Calderón for outpatient psychiatric assessment and medication management services. Please arrive 15 minutes early to complete paperwork. Please bring your insurance card, photo ID and medications in their original bottles. If you do not have insurance, bring proof of income to apply for the sliding fee scale. If you are unable to keep this appointment, 24 hour business notice of cancellation is expected. The above appointment(s) reflects first availability. You may contact the office regularly to check for cancellations that may allow you to be seen sooner.) [facility] - 03/07/18 12:30 pm (The above appointment is with Reina Alvarenga. Please complete and bring the [facility] intake packet you were provided at the hospital to this appointment. When you come to your first appointment, you will be meeting with business office staff, meeting with a counselor, and developing a treatment plan. You will receive follow- up appointments for on-going services, which could include community support, mental health and substance abuse counseling, groups/partial hospitalization programming and medication assisted treatment. You will also need to bring the following to your first appointment as well: 1) proof of household income (two consecutive pay stubs, social security award letter, bank statement, statement letter from [facility], child support statement, IRS 1040 or W2 form, or a statement from the person who financially supports you stating they help provide for your basic needs), 2) proof of residency (drivers license, a piece of mail showing your address, a statement from person you live with verifying you live at their address), 3) your social security card, 4) photo ID , 5) your insurance card (if you have commercial insurance you must call to obtain a prior authorization number before you arrive to your first appointment ) and 6) if you do not have insurance but have applied for Medicaid, please bring verification you have applied. The above appointment(s) reflects first availability. You may contact the office regularly to check for cancellations that may allow you to be seen sooner.) Psychiatry Exam - Constitutional Vitals: Temp Pulse Resp BP Pulse Ox 97.2 F L 68 14 114/80 100 03/02/18 09:00 03/02/18 09:00 03/02/18 09:00 03/02/18 09:00 02/28/18 03:46 General appearance: average, thin - Musculoskeletal Gait: normal Station: other Strength & Tone: normal for patient - Psychiatric Patient Orientation: Yes Person, Yes Time, Yes Place Level of alertness: Alert Behavior: cooperative, withdrawn Psychomotor activity: Slowed Eye Contact: Maintains Eye Contact Mood Description: Depressed, Anxious Affect description: congruent with mood Speech Volume: Soft/Quiet Speech pattern: coherent, slowed Language & Vocabulary: consistent with education Thought Process: Intact Thought Content: Yes Paranoid delusion, Yes Guilt Attention Span Ability: Capable of Focused Attention, Capable of Sustained Attention Memory Description: Grossly Intact Patient Reliability: Reliable Historian Fund of knowledge: Yes average Intelligence Estimate: Average Judgment: Limited Insight: Partial
--- NOTE | 2018-03-03 13:14 | Psychiatry Progress Note ---
Date of Encounter: 03/03/18 Time of Encounter: 12:28 Subjective Interval history: Patient seen today , case d/w treatment team , patient remains down and dysphoric , denies suicidal ideation , feeling stressed and anxious. he is compliant with medications and denies side effects. states has court date on 02/04 , does not even know the charges. states he is more stressed when he thinks about police taking him 2 weeks ago when he was walking and was close to ditch and they cuffed him and he had bad anxiety attack and then put in long term for 8 hrs, he talked about it today. he at present is anxious about his court date , paranoia improving and anxiety and depression still there. Review of Systems Psychiatric: Reports: depression, abnormal sleep pattern, suicidal ideation Results - Vital Signs Vital Signs: Temp Pulse Resp BP Pulse Ox 97.8 F 71 16 119/78 100 03/03/18 08:47 03/03/18 08:47 03/03/18 08:47 03/03/18 08:47 02/28/18 03:46 - Labs Labs: Laboratory Results - last 24 hr 03/02/18 12:29 TSH 1.102 Assessment and Plan (1) Suicidal ideations Current visit: Yes Status: Acute Risks, benefits, side effects, alternatives discussed w/pt: Yes Patient agreeable to treatment: Yes (2) Major depressive disorder, recurrent, severe with psychotic features Current visit: Yes Status: Acute Risks, benefits, side effects, alternatives discussed w/pt: Yes Patient agreeable to treatment: Yes Consult Discharge Plan - [facility] 9:00 am (The above appointment is with Silvia Calderón for outpatient psychiatric assessment and medication management services. Please arrive 15 minutes early to complete paperwork. Please bring your insurance card, photo ID and medications in their original bottles. If you do not have insurance, bring proof of income to apply for the sliding fee scale. If you are unable to keep this appointment, 24 hour business notice of cancellation is expected. The above appointment(s) reflects first availability. You may contact the office regularly to check for cancellations that may allow you to be seen sooner.) Tran Regalado [Outside] - 03/07/18 12:30 pm (The above appointment is with Reina Alvarenga. Please complete and bring the [facility] intake packet you were provided at the hospital to this appointment. When you come to your first appointment, you will be meeting with business office staff, meeting with a counselor, and developing a treatment plan. You will receive follow- up appointments for on-going services, which could include community support, mental health and substance abuse counseling, groups/partial hospitalization programming and medication assisted treatment. You will also need to bring the following to your first appointment as well: 1) proof of household income (two consecutive pay stubs, social security award letter, bank statement, statement letter from [place], child support statement, IRS 1040 or W2 form, or a statement from the person who financially supports you stating they help provide for your basic needs), 2) proof of residency (drivers license, a piece of mail showing your address, a statement from person you live with verifying you live at their address), 3) your social security card, 4) photo ID , 5) your insurance card (if you have commercial insurance you must call to obtain a prior authorization number before you arrive to your first appointment ) and 6) if you do not have insurance but have applied for Medicaid, please bring verification you have applied. The above appointment(s) reflects first availability. You may contact the office regularly to check for cancellations that may allow you to be seen sooner.) Psychiatry Exam - Constitutional Vitals: Temp Pulse Resp BP Pulse Ox 97.8 F 71 16 119/78 100 03/03/18 08:47 03/03/18 08:47 03/03/18 08:47 03/03/18 08:47 02/28/18 03:46 General appearance: thin - Musculoskeletal Gait: normal Station: relaxed Strength & Tone: normal for patient - Psychiatric Patient Orientation: Yes Person, Yes Time, Yes Place Level of alertness: Alert Behavior: cooperative, anxious Psychomotor activity: Normal Eye Contact: Minimal Contact Mood Description: Depressed, Anxious Affect description: constricted Speech Volume: Soft/Quiet Speech pattern: coherent Language & Vocabulary: consistent with education Thought Process: Logical Thought Content: Yes Paranoid delusion, Yes Guilt Attention Span Ability: Capable of Focused Attention Memory Description: Grossly Intact Patient Reliability: Reliable Historian Fund of knowledge: Yes average Intelligence Estimate: Average Judgment: Fair Insight: Partial
[2018-03-03 23:58] LABS: Estimated Average Glucose 114 mg/dl; Hemoglobin A1C 5.6 %
--- NOTE | 2018-03-04 11:14 | Psychiatry Progress Note ---
Date of Encounter: 03/04/18 Time of Encounter: 10:50 Subjective Interval history: Patient seen today case d/w treatment team , he has been showing slow improvement. he is compliant with medications and denies side effects , he is attending group and more interactive and denies suicidal thoughts , zoloft increased to 100 mg and no side effects he is tolerating wel and feels medicine has started helping. paranoia is improving but still sleeps with door open , anxiety is still there, he still has some social anxiety but is trying to interact more and learning to trust people , my decision making is getting better. start discharge planning. Review of Systems Psychiatric: Reports: depression, anxiety Results - Vital Signs Vital Signs: Temp Pulse Resp BP Pulse Ox 97.8 F 70 18 121/77 100 03/04/18 09:00 03/04/18 09:00 03/04/18 09:00 03/04/18 09:00 02/28/18 03:46 Assessment and Plan (1) Suicidal ideations Current visit: Yes Status: Acute Risks, benefits, side effects, alternatives discussed w/pt: Yes Patient agreeable to treatment: Yes (2) Major depressive disorder, recurrent, severe with psychotic features Current visit: Yes Status: Acute Risks, benefits, side effects, alternatives discussed w/pt: Yes Patient agreeable to treatment: Yes Consult Discharge Plan - Plan Referrals: Eric Suazo [facility] Celine Crow [Outside] - 03/27/18 9:00 am (The above appointment is with Silvia Calderón for outpatient psychiatric assessment and medication management services. Please arrive 15 minutes early to complete paperwork. Please bring your insurance card, photo ID and medications in their original bottles. If you do not have insurance, bring proof of income to apply for the sliding fee scale. If you are unable to keep this appointment, 24 hour business notice of cancellation is expected. The above appointment(s) reflects first availability. You may contact the office regularly to check for cancellations that may allow you to be seen sooner.) Tran Regalado [Outside] - 03/07/18 12:30 pm (The above appointment is with Reina Alvarenga. Please complete and bring the [facility] intake packet you were provided at the hospital to this appointment. When you come to your first appointment, you will be meeting with business office staff, meeting with a counselor, and developing a treatment plan. You will receive follow- up appointments for on-going services, which could include community support, mental health and substance abuse counseling, groups/partial hospitalization programming and medication assisted treatment. You will also need to bring the following to your first appointment as well: 1) proof of household income (two consecutive pay stubs, social security award letter, bank statement, statement letter from [facility], child support statement, IRS 1040 or W2 form, or a statement from the person who financially supports you stating they help provide for your basic needs), 2) proof of residency (drivers license, a piece of mail showing your address, a statement from person you live with verifying you live at their address), 3) your social security card, 4) photo ID , 5) your insurance card (if you have commercial insurance you must call to obtain a prior authorization number before you arrive to your first appointment ) and 6) if you do not have insurance but have applied for Medicaid, please bring verification you have applied. The above appointment(s) reflects first availability. You may contact the office regularly to check for cancellations that may allow you to be seen sooner.) Psychiatry Exam - Constitutional Vitals: Temp Pulse Resp BP Pulse Ox 97.8 F 70 18 121/77 100 03/04/18 09:00 03/04/18 09:00 03/04/18 09:00 03/04/18 09:00 02/28/18 03:46 General appearance: thin - Musculoskeletal Gait: normal Station: other Strength & Tone: normal for patient - Psychiatric Patient Orientation: Yes Person, Yes Time, Yes Place Level of alertness: Alert Behavior: cooperative, anxious Psychomotor activity: Normal Eye Contact: Maintains Eye Contact Mood Description: Anxious Affect description: congruent with mood Speech Volume: Normal Speech pattern: normal rate, normal rhythm, normal tone, fluent, spontaneous Language & Vocabulary: consistent with education Thought Process: Linear, Goal Oriented Thought Content: No Suicidal ideation, No Homicidal ideation, No Overt delusions Perceptual Disturbances: No Auditory hallucinations, No Visual hallucinations Attention Span Ability: Capable of Focused Attention Memory Description: Grossly Intact Patient Reliability: Reliable Historian Fund of knowledge: Yes abstraction ability, Yes aware of current events Intelligence Estimate: Average Judgment: Fair Insight: Partial
[2018-03-04] MEDS: hydrOXYzine pamoate 25 MG CAPSULE PO PRN (20:22)
--- NOTE | 2018-03-05 11:32 | Psychiatry Progress Note ---
Date of Encounter: 03/05/18 Time of Encounter: 11:00 Subjective Interval history: Patient seen today case d/w treatment team , patient has been stressed. States he was going to live with his GF and who is carrying his baby , but as she is selling marijuana and he feels he can not be in that enviornment , he is now calling his grand father with whom he wants to live. she is working and i do not know why she wants to do that and its making him anxious and stressed. he has been cooping well and using skills he has learned. he is compliant with medication and denies side effects. continue discharge planning. Review of Systems Psychiatric: Reports: depression, anxiety Results - Vital Signs Vital Signs: Temp Pulse Resp BP Pulse Ox 98.3 F 49 16 111/64 100 03/05/18 09:00 03/05/18 09:00 03/05/18 09:00 03/05/18 09:00 02/28/18 03:46 Assessment and Plan (1) Suicidal ideations Current visit: Yes Status: Acute Risks, benefits, side effects, alternatives discussed w/pt: Yes Patient agreeable to treatment: Yes (2) Major depressive disorder, recurrent, severe with psychotic features Current visit: Yes Status: Acute Risks, benefits, side effects, alternatives discussed w/pt: Yes Patient agreeable to treatment: Yes Consult Discharge Plan - Plan Referrals: Eric Suazo [facility] Celine Crow [Outside] - 03/27/18 9:00 am (The above appointment is with Silvia Calderón for outpatient psychiatric assessment and medication management services. Please arrive 15 minutes early to complete paperwork. Please bring your insurance card, photo ID and medications in their original bottles. If you do not have insurance, bring proof of income to apply for the sliding fee scale. If you are unable to keep this appointment, 24 hour business notice of cancellation is expected. The above appointment(s) reflects first availability. You may contact the office regularly to check for cancellations that may allow you to be seen sooner.) [facility] - 03/07/18 12:30 pm (The above appointment is with Reina Alvarenga. Please complete and bring the [facility] intake packet you were provided at the hospital to this appointment. When you come to your first appointment, you will be meeting with business office staff, meeting with a counselor, and developing a treatment plan. You will receive follow- up appointments for on-going services, which could include community support, mental health and substance abuse counseling, groups/partial hospitalization programming and medication assisted treatment. You will also need to bring the following to your first appointment as well: 1) proof of household income (two consecutive pay stubs, social security award letter, bank statement, statement letter from [facility], child support statement, IRS 1040 or W2 form, or a statement from the person who financially supports you stating they help provide for your basic needs), 2) proof of residency (drivers license, a piece of mail showing your address, a statement from person you live with verifying you live at their address), 3) your social security card, 4) photo ID , 5) your insurance card (if you have commercial insurance you must call to obtain a prior authorization number before you arrive to your first appointment ) and 6) if you do not have insurance but have applied for Medicaid, please bring verification you have applied. The above appointment(s) reflects first availability. You may contact the office regularly to check for cancellations that may allow you to be seen sooner.) Psychiatry Exam - Constitutional Vitals: Temp Pulse Resp BP Pulse Ox 98.3 F 49 16 111/64 100 03/05/18 09:00 03/05/18 09:00 03/05/18 09:00 03/05/18 09:00 02/28/18 03:46 General appearance: age & developmentally appropriate, thin - Musculoskeletal Gait: normal Station: other - Psychiatric Patient Orientation: Yes Person, Yes Time, Yes Place Level of alertness: Alert Behavior: cooperative, anxious Psychomotor activity: Normal Eye Contact: Maintains Eye Contact Mood Description: Anxious Affect description: congruent with mood, full range Speech Volume: Normal Speech pattern: normal rate, normal rhythm, normal tone, fluent, spontaneous Language & Vocabulary: consistent with education Thought Process: Linear, Goal Oriented Thought Content: Yes Intact, Yes Guilt Attention Span Ability: Capable of Focused Attention Memory Description: Grossly Intact Patient Reliability: Reliable Historian Fund of knowledge: Yes average Intelligence Estimate: Average Judgment: Fair Insight: Partial
[2018-03-05] MEDS: hydrOXYzine pamoate 25 MG CAPSULE PO PRN (21:07)
--- NOTE | 2018-03-06 09:55 | Psychiatry Progress Note ---
Date of Encounter: 03/06/18 Time of Encounter: 09:15 Subjective Interval history: patient seen today , case d/w treatment team ,patient was last night very depress, crying in position as found out his grand father refused to take him , he at present states felling anxious and concerned about his being homeless. he is depress, anxious and worried about his court date. states he asked his grand father to come and visit us and states i am very depress , he is the only father figure and it really hurts and i do not feel safe , he was teary eyes , feeling worthless and hope;ess. continue stabilization and supportive counselling given. Review of Systems Psychiatric: Reports: depression, anxiety, hopelessness Results - Vital Signs Vital Signs: Temp Pulse Resp BP Pulse Ox 99.2 F 91 16 133/93 100 03/05/18 20:37 03/05/18 20:37 03/05/18 20:37 03/05/18 20:37 02/28/18 03:46 Assessment and Plan (1) Suicidal ideations Current visit: Yes Status: Acute Risks, benefits, side effects, alternatives discussed w/pt: Yes Patient agreeable to treatment: Yes (2) Major depressive disorder, recurrent, severe with psychotic features Current visit: Yes Status: Acute Risks, benefits, side effects, alternatives discussed w/pt: Yes Patient agreeable to treatment: Yes Consult Discharge Plan - Plan Referrals: Eric Suazo [facility] Celine Crow [Outside] - 03/27/18 9:00 am (The above appointment is with Silvia Calderón for outpatient psychiatric assessment and medication management services. Please arrive 15 minutes early to complete paperwork. Please bring your insurance card, photo ID and medications in their original bottles. If you do not have insurance, bring proof of income to apply for the sliding fee scale. If you are unable to keep this appointment, 24 hour business notice of cancellation is expected. The above appointment(s) reflects first availability. You may contact the office regularly to check for cancellations that may allow you to be seen sooner.) [facility] - 03/07/18 12:30 pm (The above appointment is with Reina Alvarenga. Please complete and bring the [facility] intake packet you were provided at the hospital to this appointment. When you come to your first appointment, you will be meeting with business office staff, meeting with a counselor, and developing a treatment plan. You will receive follow- up appointments for on-going services, which could include community support, mental health and substance abuse counseling, groups/partial hospitalization programming and medication assisted treatment. You will also need to bring the following to your first appointment as well: 1) proof of household income (two consecutive pay stubs, social security award letter, bank statement, statement letter from [facility], child support statement, IRS 1040 or W2 form, or a statement from the person who financially supports you stating they help provide for your basic needs), 2) proof of residency (drivers license, a piece of mail showing your address, a statement from person you live with verifying you live at their address), 3) your social security card, 4) photo ID , 5) your insurance card (if you have commercial insurance you must call to obtain a prior authorization number before you arrive to your first appointment ) and 6) if you do not have insurance but have applied for Medicaid, please bring verification you have applied. The above appointment(s) reflects first availability. You may contact the office regularly to check for cancellations that may allow you to be seen sooner.) Psychiatry Exam - Constitutional Vitals: Temp Pulse Resp BP Pulse Ox 99.2 F 91 16 133/93 100 03/05/18 20:37 03/05/18 20:37 03/05/18 20:37 03/05/18 20:37 02/28/18 03:46 General appearance: thin - Musculoskeletal Gait: slow Station: other Strength & Tone: normal for patient - Psychiatric Patient Orientation: Yes Person, Yes Time, Yes Place Level of alertness: Alert Behavior: anxious, withdrawn Psychomotor activity: Slowed Eye Contact: Maintains Eye Contact Mood Description: Depressed, Anxious Affect description: congruent with mood Speech Volume: Soft/Quiet Speech pattern: coherent, slowed Language & Vocabulary: consistent with education Thought Process: Logical Thought Content: Yes Guilt Attention Span Ability: Capable of Focused Attention Memory Description: Grossly Intact Patient Reliability: Reliable Historian Fund of knowledge: Yes average Intelligence Estimate: Average Judgment: Limited Insight: Partial
[2018-03-06] MEDS ORDERED: *HR* LORazepam 2 MG/ML VIAL IM PRN (14:59)
[2018-03-06] MEDS ORDERED: *HR* LORazepam 1 MG TABLET PO PRN (14:59)
[2018-03-06] MEDS: hydrOXYzine pamoate 25 MG CAPSULE PO PRN ×2 (15:48→21:44)
--- NOTE | 2018-03-07 10:52 | Psychiatry Progress Note ---
Date of Encounter: 03/07/18 Time of Encounter: 10:49 Subjective Interval history: Client admitted for psychosis and SI. Psychosis seems well controlled but he still has an intense stare at times. Mood and anxiety issues are still very active. Looks visibly anxious. Taking multiple prns. Catastrophizing everything. On the verge of tears during discussion. Continues to experience SI. Reports he does not want to kill himself but he is worried if he leaves and something stresses him he will just come right back to the hospital. Doesn' t look or feel ready to go. Started on Zoloft and Seroquel. Feels meds are helping. Will increase Seroquel dose tonight. Review of Systems Constitutional: Denies: fever, chills, weakness, weight change Eyes: Denies: eye pain, vision change Ears, Nose, Throat: Denies: ear pain, throat pain, dental pain, hearing loss, congestion Cardiovascular: Denies: chest pain, palpitations, dyspnea on exertion Respiratory: Denies: cough, dyspnea, wheezes Gastrointestinal: Denies: abdominal pain, nausea, vomiting, diarrhea, constipation Musculoskeletal: Denies: joint swelling, joint pain Neurological: Denies: headache, weakness, numbness, memory loss Psychiatric: Reports: depression, anxiety, hopelessness Results - Vital Signs Vital Signs: Temp Pulse Resp BP Pulse Ox 97.9 F 105 16 125/84 100 03/07/18 09:00 03/07/18 09:00 03/07/18 09:00 03/07/18 09:00 02/28/18 03:46 Assessment and Plan (1) Major depressive disorder, recurrent, severe with psychotic features Current visit: Yes Status: Acute Plan: Continue hospitalization, Close observation, Suicide Precautions per unit protocol, Encourage participation in unit milieu, Group Therapy, Monitor sleep, Monitor appetite, Secure weapons Risks, benefits, side effects, alternatives discussed w/pt: Yes Patient agreeable to treatment: Yes Consult Discharge Plan - Plan Referrals: Eric Suazo [facility] [place] [Outside] - 03/27/18 9:00 am (The above appointment is with Silvia Calderón for outpatient psychiatric assessment and medication management services. Please arrive 15 minutes early to complete paperwork. Please bring your insurance card, photo ID and medications in their original bottles. If you do not have insurance, bring proof of income to apply for the sliding fee scale. If you are unable to keep this appointment, 24 hour business notice of cancellation is expected. The above appointment(s) reflects first availability. You may contact the office regularly to check for cancellations that may allow you to be seen sooner.) [facility] 12:30 pm (The above appointment is with Reina Alvarenga. Please complete and bring the [facility] intake packet you were provided at the hospital to this appointment. When you come to your first appointment, you will be meeting with business office staff, meeting with a counselor, and developing a treatment plan. You will receive follow- up appointments for on-going services, which could include community support, mental health and substance abuse counseling, groups/partial hospitalization programming and medication assisted treatment. You will also need to bring the following to your first appointment as well: 1) proof of household income (two consecutive pay stubs, social security award letter, bank statement, statement letter from [facility], child support statement, IRS 1040 or W2 form, or a statement from the person who financially supports you stating they help provide for your basic needs), 2) proof of residency (drivers license, a piece of mail showing your address, a statement from person you live with verifying you live at their address), 3) your social security card, 4) photo ID , 5) your insurance card (if you have commercial insurance you must call to obtain a prior authorization number before you arrive to your first appointment ) and 6) if you do not have insurance but have applied for Medicaid, please bring verification you have applied. The above appointment(s) reflects first availability. You may contact the office regularly to check for cancellations that may allow you to be seen sooner.) Psychiatry Exam - Constitutional Vitals: Temp Pulse Resp BP Pulse Ox 97.9 F 105 16 125/84 100 03/07/18 09:00 03/07/18 09:00 03/07/18 09:00 03/07/18 09:00 02/28/18 03:46 General appearance: age & developmentally appropriate, well-groomed, well- nourished - Musculoskeletal Gait: normal Station: stiff Strength & Tone: normal for patient - Psychiatric Patient Orientation: Yes Person, Yes Time, Yes Place Level of alertness: Alert Behavior: calm, cooperative Psychomotor activity: Normal Eye Contact: Intense Contact Mood Description: Depressed, Anxious Affect description: congruent with mood, full range Speech Volume: Normal Speech pattern: normal rate, normal rhythm, normal tone, fluent, spontaneous Language & Vocabulary: consistent with education Thought Process: Linear Thought Content: Yes Suicidal ideation, No Homicidal ideation Perceptual Disturbances: No Auditory hallucinations, No Visual hallucinations Attention Span Ability: Capable of Focused Attention Memory Description: Grossly Intact Patient Reliability: Reliable Historian Fund of knowledge: Yes abstraction ability, Yes aware of current events Intelligence Estimate: Below Average Judgment: Fair Insight: Partial
--- NOTE | 2018-03-08 10:29 | Psychiatry Progress Note ---
Date of Encounter: 03/08/18 Time of Encounter: 10:26 Subjective Interval history: Client looks better today. Increase in Seroquel was beneficial. He is smiling more and seems more relaxed. States he likes mornings and usually does best in mornings. Anxiety worsens over course of day. Will see if medication increase continues to help later in the day. Client is more amenable to being discharged to sister's house. She continues to be supportive. SI has lessened. Cannot get meds until Saturday but if he continues on current course will be ready for discharge then. Review of Systems Constitutional: Denies: fever, chills, weakness, weight change Eyes: Denies: eye pain, vision change Ears, Nose, Throat: Denies: ear pain, throat pain, dental pain, hearing loss, congestion Cardiovascular: Denies: chest pain, palpitations, dyspnea on exertion Respiratory: Denies: cough, dyspnea, wheezes Gastrointestinal: Denies: abdominal pain, nausea, vomiting, diarrhea, constipation Musculoskeletal: Denies: joint swelling, joint pain Neurological: Denies: headache, weakness, numbness, memory loss Psychiatric: Reports: depression, anxiety, hopelessness Results - Vital Signs Vital Signs: Temp Pulse Resp BP Pulse Ox 98.7 F 90 18 133/86 100 03/07/18 21:00 03/07/18 21:00 03/07/18 21:00 03/07/18 21:00 02/28/18 03:46 Assessment and Plan (1) Major depressive disorder, recurrent, severe with psychotic features Current visit: Yes Status: Acute Plan: Continue hospitalization, Close observation, Suicide Precautions per unit protocol, Encourage participation in unit milieu, Group Therapy, Monitor sleep, Monitor appetite Risks, benefits, side effects, alternatives discussed w/pt: Yes Patient agreeable to treatment: Yes Consult Discharge Plan - Plan Referrals: Eric Suazo [facility] Celine Crow [Outside] - 03/27/18 9:00 am (The above appointment is with Silvia Calderón for outpatient psychiatric assessment and medication management services. Please arrive 15 minutes early to complete paperwork. Please bring your insurance card, photo ID and medications in their original bottles. If you do not have insurance, bring proof of income to apply for the sliding fee scale. If you are unable to keep this appointment, 24 hour business notice of cancellation is expected. The above appointment(s) reflects first availability. You may contact the office regularly to check for cancellations that may allow you to be seen sooner.) [facility] - 03/18/18 1:00 pm (The above appointment is with Madyson Weir. Please complete and bring the [facility] intake packet you were provided at the hospital to this appointment. When you come to your first appointment, you will be meeting with business office staff, meeting with a counselor, and developing a treatment plan. You will receive follow- up appointments for on-going services, which could include community support, mental health and substance abuse counseling, groups/partial hospitalization programming and medication assisted treatment. You will also need to bring the following to your first appointment as well: 1) proof of household income (two consecutive pay stubs, social security award letter, bank statement, statement letter from [facility], child support statement, IRS 1040 or W2 form, or a statement from the person who financially supports you stating they help provide for your basic needs), 2) proof of residency (drivers license, a piece of mail showing your address, a statement from person you live with verifying you live at their address), 3) your social security card, 4) photo ID , 5) your insurance card (if you have commercial insurance you must call to obtain a prior authorization number before you arrive to your first appointment ) and 6) if you do not have insurance but have applied for Medicaid, please bring verification you have applied. The above appointment(s) reflects first availability. You may contact the office regularly to check for cancellations that may allow you to be seen sooner.) Psychiatry Exam - Constitutional Vitals: Temp Pulse Resp BP Pulse Ox 98.7 F 90 18 133/86 100 03/07/18 21:00 03/07/18 21:00 03/07/18 21:00 03/07/18 21:00 02/28/18 03:46 General appearance: age & developmentally appropriate, well-groomed, well- nourished - Musculoskeletal Gait: normal Station: relaxed Strength & Tone: normal for patient - Psychiatric Patient Orientation: Yes Person, Yes Time, Yes Place Level of alertness: Alert Behavior: calm, cooperative Psychomotor activity: Normal Eye Contact: Maintains Eye Contact Mood Description: Euthymic/stable Affect description: congruent with mood, full range Speech Volume: Normal Speech pattern: normal rate, normal rhythm, normal tone, fluent, spontaneous Language & Vocabulary: consistent with education Thought Process: Linear Thought Content: No Suicidal ideation, No Homicidal ideation, No Overt delusions Perceptual Disturbances: No Auditory hallucinations, No Visual hallucinations Attention Span Ability: Capable of Focused Attention Memory Description: Grossly Intact Patient Reliability: Reliable Historian Fund of knowledge: Yes abstraction ability, Yes aware of current events Intelligence Estimate: Average Judgment: Fair Insight: Partial
[2018-03-08] MEDS: hydrOXYzine pamoate 25 MG CAPSULE PO PRN (22:45)
--- NOTE | 2018-03-09 09:52 | Psychiatry Progress Note ---
Date of Encounter: 03/09/18 Time of Encounter: 09:49 Subjective Interval history: Doing well. Anxiety was tolerable yesterday. Able to sleep last night with prns. In a good mood again this morning. Ready for discharge tomorrow. Cannot get meds filled until tomorrow. Still agreeable to going to sister's place. No overt psychosis but he has some negative symptomatology. Also tends to parrot/echo what this underwriter solicitation director is saying. Suspect he has a primary thought disorder that still needs fleshed out. Pleasant and interacting well on the unit. Denies SI/HI. Review of Systems Constitutional: Denies: fever, chills, weakness, weight change Eyes: Denies: eye pain, vision change Ears, Nose, Throat: Denies: ear pain, throat pain, dental pain, hearing loss, congestion Cardiovascular: Denies: chest pain, palpitations, dyspnea on exertion Respiratory: Denies: cough, dyspnea, wheezes Gastrointestinal: Denies: abdominal pain, nausea, vomiting, diarrhea, constipation Musculoskeletal: Denies: joint swelling, joint pain Neurological: Denies: headache, weakness, numbness, memory loss Psychiatric: Reports: depression, anxiety, hopelessness Results - Vital Signs Vital Signs: Temp Pulse Resp BP Pulse Ox 98.1 F 71 16 128/78 100 03/09/18 09:00 03/09/18 09:00 03/09/18 09:00 03/09/18 09:00 02/28/18 03:46 Assessment and Plan (1) Major depressive disorder, recurrent, severe with psychotic features Current visit: Yes Status: Acute Plan: Continue hospitalization, Close observation, Suicide Precautions per unit protocol, Encourage participation in unit milieu, Group Therapy, Monitor sleep, Monitor appetite Risks, benefits, side effects, alternatives discussed w/pt: Yes Patient agreeable to treatment: Yes Consult Discharge Plan - Plan Referrals: Eric Suazo [facility] [place] [Outside] - 03/27/18 9:00 am (The above appointment is with Silvia Calderón for outpatient psychiatric assessment and medication management services. Please arrive 15 minutes early to complete paperwork. Please bring your insurance card, photo ID and medications in their original bottles. If you do not have insurance, bring proof of income to apply for the sliding fee scale. If you are unable to keep this appointment, 24 hour business notice of cancellation is expected. The above appointment(s) reflects first availability. You may contact the office regularly to check for cancellations that may allow you to be seen sooner.) [facility] - 03/18/18 1:00 pm (The above appointment is with Madyson Weir. Please complete and bring the [facility] intake packet you were provided at the hospital to this appointment. When you come to your first appointment, you will be meeting with business office staff, meeting with a counselor, and developing a treatment plan. You will receive follow- up appointments for on-going services, which could include community support, mental health and substance abuse counseling, groups/partial hospitalization programming and medication assisted treatment. You will also need to bring the following to your first appointment as well: 1) proof of household income (two consecutive pay stubs, social security award letter, bank statement, statement letter from [facility], child support statement, IRS 1040 or W2 form, or a statement from the person who financially supports you stating they help provide for your basic needs), 2) proof of residency (drivers license, a piece of mail showing your address, a statement from person you live with verifying you live at their address), 3) your social security card, 4) photo ID , 5) your insurance card (if you have commercial insurance you must call to obtain a prior authorization number before you arrive to your first appointment ) and 6) if you do not have insurance but have applied for Medicaid, please bring verification you have applied. The above appointment(s) reflects first availability. You may contact the office regularly to check for cancellations that may allow you to be seen sooner.) Psychiatry Exam - Constitutional Vitals: Temp Pulse Resp BP Pulse Ox 98.1 F 71 16 128/78 100 03/09/18 09:00 03/09/18 09:00 03/09/18 09:00 03/09/18 09:00 02/28/18 03:46 General appearance: age & developmentally appropriate, well-groomed, well- nourished - Musculoskeletal Gait: normal Station: relaxed Strength & Tone: normal for patient - Psychiatric Patient Orientation: Yes Person, Yes Time, Yes Place Level of alertness: Alert Behavior: calm, cooperative Psychomotor activity: Normal Eye Contact: Intense Contact Mood Description: Euthymic/stable Affect description: congruent with mood, full range Speech Volume: Normal Speech pattern: normal rate, normal rhythm, normal tone, fluent, spontaneous Language & Vocabulary: consistent with education Thought Process: Linear, Goal Oriented Thought Content: No Suicidal ideation, No Homicidal ideation, No Overt delusions Perceptual Disturbances: No Auditory hallucinations, No Visual hallucinations Attention Span Ability: Capable of Focused Attention Memory Description: Grossly Intact Patient Reliability: Reliable Historian Fund of knowledge: Yes abstraction ability, Yes aware of current events Intelligence Estimate: Average Judgment: Fair Insight: Partial
--- NOTE | 2018-03-10 09:43 | Discharge Summary ---
Date of Encounter: 03/10/18 Time of Encounter: 09:30 Diagnosis - Discharge Diagnosis (1) Suicidal ideations Status: Resolved (2) Major depressive disorder, recurrent, severe with psychotic features Status: Acute Medications - Discharge Medications Prescriptions: hydrOXYzine pamoate [HydrOXYzine Pamoate] 25 mg PO TID PRN 30 Days #90 capsule PRN Reason: Anxiety Quetiapine Fumarate [Seroquel] 100 mg PO HS 30 Days #30 tablet Sertraline [Zoloft] 100 mg PO DAILY 30 Days #30 tablet traZODone [TraZODone] 50 mg PO HS PRN 30 Days #30 tablet PRN Reason: Insomnia Quetiapine Fumarate [Seroquel] 100 mg PO HS 30 Days #30 tablet 03/10/18 [Rx] Sertraline [Zoloft] 100 mg PO DAILY 30 Days #30 tablet 03/10/18 [Rx] hydrOXYzine pamoate [HydrOXYzine Pamoate] 25 mg PO TID PRN 30 Days #90 capsule 03/10/18 [Rx] traZODone [TraZODone] 50 mg PO HS PRN 30 Days #30 tablet 03/10/18 [Rx] 3 Allergy/AdvReac Type Severity Reaction Status Date / Time No Known Allergies Allergy Verified 02/28/18 11:10 Results Procedures and tests throughout hospitalization: Completed Lab Orders Category Date Time Status Hgb A1C Routine Lab 03/01/18 11:56 Completed TSH [Thyroid Stimulating Hormone] Routine Lab 03/02/18 12:29 Completed Provider Date of admission: 02/28/18 13:36 Primary care physician: PCP NONE Discharging clinician: Levy Pedersen Psychiatry Exam - Constitutional Vitals: Temp Pulse Resp BP Pulse Ox 98.9 F 93 18 132/99 100 03/09/18 20:04 03/09/18 20:04 03/09/18 20:04 03/09/18 20:04 02/28/18 03:46 General appearance: age & developmentally appropriate, well-groomed, well- nourished - Musculoskeletal Gait: normal Station: relaxed Strength & Tone: normal for patient - Psychiatric Patient Orientation: Yes Person, Yes Time, Yes Place Level of alertness: Alert Behavior: calm, cooperative Psychomotor activity: Normal Eye Contact: Maintains Eye Contact Mood Description: Euthymic/stable Affect description: congruent with mood, full range Speech Volume: Normal Speech pattern: normal rate, normal rhythm, normal tone, fluent, spontaneous Language & Vocabulary: consistent with education Thought Process: Linear, Goal Oriented Thought Content: No Suicidal ideation, No Homicidal ideation, No Overt delusions Perceptual Disturbances: No Auditory hallucinations, No Visual hallucinations Attention Span Ability: Capable of Focused Attention Memory Description: Grossly Intact Patient Reliability: Reliable Historian Fund of knowledge: Yes abstraction ability, Yes aware of current events Intelligence Estimate: Average Judgment: Fair Insight: Partial Hospital Course Hospital course: Mr. Ghtora is a 22 year old male The patient's chief complaint was of suicidal thinking. He also reported auditory hallucinations at the time of admission. History of present illness. The patient was admitted to one . He had depressive symptoms. The suicidal ideation improved over a period of time. He did not have suicidal ideation time discharge. The patient was placed on a regimen of sertraline with augmentation with Seroquel for the treatment of major depression. He required when necessary medicines including Vistaril and trazodone. These were helpful as he had problems with residential resources. Arrangements were made for a new residence for him. Discharge follow-up appointments were made for him. He tolerated the medicine without significant difficulty. There was no return of suicidal ideation. Does patient wish to continue nicotine replacement upon disc: No - Time Spent with Patient Total time spent providing and/or coordinating discharge services: Less than 30 minutes Assessment and Plan - Patient/Caregiver Discharge Instructions Activity: resume usual activities as tolerated Diet: regular diet - Follow up Plan Follow up with: Eric Suazo [facility] Celine Crow [Outside] - 03/27/18 9:00 am (The above appointment is with Silvia Calderón for outpatient psychiatric assessment and medication management services. Please arrive 15 minutes early to complete paperwork. Please bring your insurance card, photo ID and medications in their original bottles. If you do not have insurance, bring proof of income to apply for the sliding fee scale. If you are unable to keep this appointment, 24 hour business notice of cancellation is expected. The above appointment(s) reflects first availability. You may contact the office regularly to check for cancellations that may allow you to be seen sooner.) [facility]Outside[facility] - 03/18/18 1:00 pm (The above appointment is with Madyson Weir. Please complete and bring the [facility] intake packet you were provided at the hospital to this appointment. When you come to your first appointment, you will be meeting with business office staff, meeting with a counselor, and developing a treatment plan. You will receive follow- up appointments for on-going services, which could include community support, mental health and substance abuse counseling, groups/partial hospitalization programming and medication assisted treatment. You will also need to bring the following to your first appointment as well: 1) proof of household income (two consecutive pay stubs, social security award letter, bank statement, statement letter from [facility], child support statement, IRS 1040 or W2 form, or a statement from the person who financially supports you stating they help provide for your basic needs), 2) proof of residency (drivers license, a piece of mail showing your address, a statement from person you live with verifying you live at their address), 3) your social security card, 4) photo ID , 5) your insurance card (if you have commercial insurance you must call to obtain a prior authorization number before you arrive to your first appointment ) and 6) if you do not have insurance but have applied for Medicaid, please bring verification you have applied. The above appointment(s) reflects first availability. You may contact the office regularly to check for cancellations that may allow you to be seen sooner.) Overall status at discharge: Stable Disposition: Home, Self-Care Quality - Multiple Antipsychotics Patient discharged on 2 or more antipsychotic medications: No Procedures - Procedures Procedures: Medication Management, Crisis Stabilization, Supportive Therapy, Group Therapy, Psychoeducational Therapy
[2018-03-10 10:11] VITALS: BP 129/97
== END 2018-03-10 12:00 | disposition home or self-care (01) | DRG 751 ==
LOC: EMEROO 22:02 → 1ANU 22:02 → SUATTDRO 02-28 13:36 → 1ANU 03-08 06:48
PROVIDERS: ADMIT General Practice; ATTEND Psychiatry & Neurology Forensic Psychiatry

== ENCOUNTER 2020-07-09 00:12 | Inpatient (IN) ==
[2020-07-09 01:03] LABS: Amorphous Sediment,Urine Many per hpf (None-Few); Bacteria,Urine Many per hpf (None-Few); Bilirubin,Urine Negative (Negative); Blood,Urine Negative (Negative); Clarity,Urine Ex.Turbid (Clear); Color,Urine Yellow (Yellow); Glucose,Urine (UA) Normal (Normal); Ketones,Urine Trace mg/dL (Negative); Leukocyte Esterase,Urine Negative (Negative); Mucus,Urine Few per lpf (None-Few); Nitrite,Urine Negative (Negative); Protein,Urine 30 mg/dL (Neg-Trace); Urobilinogen,Urine Normal (Normal); WBC,Urine 15-30 per hpf (0-3)
[2020-07-09 01:08] LABS: Basophils # 0.1 K/mcL (0.0-0.2); Basophils % 0.7 %; Eosinophils # 0.5 K/mcL (0.0-0.6); Eosinophils % 4.5 %; Hematocrit 49.2 % (37.5-50.1); Hemoglobin 16.7 g/dL (12.9-16.9); Immature Granulocytes % 0.4 % (0-4); Lymphocytes # 2.5 K/mcL (0.6-4.6); Lymphocytes % 25.1 %; Mean Corpuscular HGB Conc 33.9 g/dL (31.6-35.5); Mean Corpuscular Hemoglobin 31.2 pg (28.0-33.3); Mean Corpuscular Volume 91.8 fL (83.0-100.0); Mean Platelet Volume 9.7 fL (9.4-12.4); Monocytes # 0.8 K/mcL (0.0-1.3); Monocytes % 7.8 %; Neutrophils # 6.2 K/mcL (1.6-8.9); Platelet Count 282 K/mcL (140-400); Red Blood Count 5.36 M/mcL (4.19-5.50); Red Cell Distribution Width 13.3 % (11.5-14.5); Segmented Neutrophils % 61.5 %; White Blood Count 10.1 K/mcL (4.3-11.1)
[2020-07-09 01:10] LABS: Amphetamine Screen,Urine Negative ng/mL (Cutoff=1000); Barbiturate Screen,Urine Negative ng/mL (Cutoff=200); Benzodiazepines Screen,Urine Negative ng/mL (Cutoff=200); Cannabinoid Screen,Urine Positive ng/mL (Cutoff = 50); Cocaine Screen,Urine Negative ng/mL (Cutoff= 300); Opiate Screen,Urine Negative ng/mL (Cutoff=300); Phencyclidine Screen,Urine Negative ng/mL (Cutoff=25)
[2020-07-09] MEDS ORDERED: cephALEXin 500 MG CAPSULE PO STA (01:15)
[2020-07-09 01:19] LABS: Acetaminophen < 10 mcg/mL (10-20); BUN/Creatinine Ratio 17 (6-26); Blood Urea Nitrogen 17 mg/dL (6-20); Carbon Dioxide 29 mEq/L (23-29); Chloride 103 mEq/L (98-107); Chol/HDL Ratio 3.1 (0-4.9); Cholesterol 159 mg/dL (< 200); Ethanol < 10 mg/dL (Less than 10); Glucose 95 mg/dL (70-105); HDL Cholesterol 52 mg/dL (40-59); LDL Cholesterol,Calculated 86 mg/dL (< 100); Osmolality,Calculated 289 (280-300); Potassium 3.2 mEq/L (3.5-5.1); Salicylate < 2.5 mg/dL (15.0-30.0); Sodium 139 mEq/L (136-145); Triglycerides 104 mg/dL (< 150); eGFR For African Americans > 60 (> 60); eGFR For Non-African Americans > 60 (> 60)
[2020-07-09] MEDS ORDERED: *HR* LORazepam 1 MG TABLET PO PRN (02:09)
[2020-07-09] MEDS ORDERED: MOM Conc 10 ML UD.LIQ PO PRN (02:09)
[2020-07-09] MEDS ORDERED: Haloperidol Lactate 5 MG/ML VIAL IM PRN (02:09)
[2020-07-09] MEDS ORDERED: Acetaminophen 325 MG TABLET PO PRN (02:09)
[2020-07-09] MEDS ORDERED: *HR* LORazepam 2 MG/ML VIAL IM PRN (02:09)
[2020-07-09] MEDS ORDERED: Mag Hydrox/Al Hydrox/Simeth 30 ML UDC PO PRN (02:09)
[2020-07-09] MEDS ORDERED: haloperidoL 5 MG TABLET PO PRN (02:09)
[2020-07-09] MEDS: hydrOXYzine pamoate 25 MG CAPSULE PO PRN ×2 (03:05→20:10)
[2020-07-09] MEDS: traZODone 50 MG TABLET PO PRN (03:05)
[2020-07-09 04:20] LABS: Estimated Average Glucose 108 mg/dl
[2020-07-09] MEDS: QUEtiapine Fumarate 25 MG TABLET PO SCH (20:09)
[2020-07-10] MEDS: QUEtiapine Fumarate 25 MG TABLET PO SCH (20:26)
[2020-07-11] MEDS: QUEtiapine Fumarate 25 MG TABLET PO SCH (20:07)
[2020-07-11] MEDS: hydrOXYzine pamoate 25 MG CAPSULE PO PRN (20:07)
[2020-07-11] MEDS ORDERED: QUEtiapine Fumarate 100 MG TABLET PO SCH (21:00)
[2020-07-11] MEDS: traZODone 50 MG TABLET PO PRN (21:47)
[2020-07-12 09:20] VITALS: BP 127/84
[2020-07-12] MEDS ORDERED: FLU Vac QV 20-21 (6Month+)/PF 0.5 ML SYRINGE IM ONE (09:29)
== END 2020-07-12 11:20 | disposition home or self-care (01) | DRG 751 ==
LOC: EMEROOARM 00:12 → 1ANU 02:06
PROVIDERS: ADMIT Psychiatry & Neurology Psychiatry; ATTEND Psychiatry & Neurology Psychiatry